=== PATIENT | female | born 1990 | race Caucasian/White ===

== ENCOUNTER 2019-05-25 10:19 | Emergency (ER) | payer BC ==
[~2019-05-25] VITALS: Ht 165.1 cm; Wt 92.6 kg
--- NOTE | 2019-05-25 10:26 | NUR ---
PATIENT AMBULATED TO BED 6.
[2019-05-25 10:31] VITALS: BP 135/72
--- NOTE | 2019-05-25 10:42 | NUR ---
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 PT REPORTED PAIN PRIOR TO LIFTING OBJECTS BUT EXASERBATED YESTERDAY. PT REPORTS PINCHING PAIN IN LT SHOULDER W/ SOME NUMBNESS, PT UNABLE TO LIFT LT ARM WITHOUT PAIN. NO DEMORMITY, COLOR WNL, CAP REFIL < 2 SEC, RADIAL PULSE PRESENT. DOCTOR AT PT BEDSIDE.
--- NOTE | 2019-05-25 10:45 | NUR ---
PT LEFT FOR XRAY.
--- NOTE | 2019-05-25 11:15 | NUR ---
EMT PLACES SLING ON PT.
--- NOTE | 2019-05-25 11:18 | NUR ---
Sling applied to patients left arm
[2019-05-25 11:37] VITALS: BP 126/78
== END 2019-05-25 11:38 | disposition home or self-care (01) ==
LOC: MED 10:19
DX: M25.511 Pain in right shoulder (principal); M25.512 Pain in left shoulder; Z86.39 Personal history of other endocrine, nutritional and metabolic disease
CPT/HCPCS: 73030; 99283